=== PATIENT | male | born 1985 | race Caucasian/White ===

== ENCOUNTER 2017-03-18 23:40 | Emergency (ER) | payer OTHER ==
[2017-03-19] MEDS: NORCO, ANEXSIA 5/325MG TABLET (HYDROcodone/ACETAMINOPHEN) PO (01:26)
[2017-03-19] MEDS: NORCO 5/325MG TABLET (BULK FOR ED) PO (01:30)
== END 2017-03-19 01:47 | disposition home or self-care (01) ==
LOC: M ED 23:40
DX: S43.51XA Sprain of right acromioclavicular joint, initial encounter (principal); W51.XXXA Accidental striking against or bumped into by another person, initial encounter; Y92.330 Ice skating rink (indoor) (outdoor) as the place of occurrence of the external cause; Y93.22 Activity, ice hockey; J45.909 Unspecified asthma, uncomplicated; Z88.1 Allergy status to other antibiotic agents
CPT/HCPCS: 73030